=== PATIENT | female | born 1950 | race African-American/Black ===

== ENCOUNTER 2018-04-12 21:10 | Emergency (ER) | payer SELFPAY ==
[~2018-04-12] VITALS: Ht 167.6 cm; Wt 64.0 kg
[2018-04-12 21:13] VITALS: BP 169/90
== END 2018-04-13 06:38 | disposition left against medical advice (07) ==
LOC: ER 21:10
DX: R68.89 Other general symptoms and signs (principal); Z53.21 Procedure and treatment not carried out due to patient leaving prior to being seen by health care provider